=== PATIENT | male | born 1950 | race Caucasian/White ===

== ENCOUNTER → 2021-06-18 11:07 | Outpatient (BNVA) | payer MEDICARE, OTHER, SELFPAY | PROVIDERS: Family Provider Family Medicine; PCP Family Medicine; Visit Provider Specialist | DX: G30.9 Alzheimer's disease, unspecified (principal); F02.80 Dementia in other diseases classified elsewhere, unspecified severity, without behavioral disturbance, psychotic disturbance, mood disturbance, and anxiety | CPT/HCPCS: 96116; 99204 ==

== ENCOUNTER → 2022-01-14 07:34 | Outpatient (BNVA) | payer MEDICARE, OTHER, SELFPAY | PROVIDERS: Family Provider Family Medicine; PCP Family Medicine; Visit Provider Specialist | DX: G30.9 Alzheimer's disease, unspecified (principal); F02.80 Dementia in other diseases classified elsewhere, unspecified severity, without behavioral disturbance, psychotic disturbance, mood disturbance, and anxiety | CPT/HCPCS: 99213 ==

== ENCOUNTER → 2022-04-15 08:05 | Outpatient (BNVA) | payer MEDICARE, OTHER, SELFPAY | PROVIDERS: Family Provider Family Medicine; PCP Family Medicine; Visit Provider Specialist | DX: G30.9 Alzheimer's disease, unspecified (principal); F02.80 Dementia in other diseases classified elsewhere, unspecified severity, without behavioral disturbance, psychotic disturbance, mood disturbance, and anxiety | CPT/HCPCS: 96116; 99213 ==

== ENCOUNTER 2022-09-13 07:00 | Outpatient (CLI) | payer MEDICARE, OTHER, SELFPAY ==
--- NOTE | 2022-09-13 | MR_ITS ---
WS: [id number] MRI HEAD WITH CONTRAST TECHNIQUE: Sagittal T1, T2 axial, T2 axial FLAIR, axial susceptibility weighted imaging, axial diffus ion weighted images, and coronal T2 images were obtained. Pre and post-T1 axial and post T1 coronal i mages. ADC and FSPGR images. CLINICAL INFORMATION: PROGRESSIVE DEMENTIA COMPARISON: CT head 2017 FINDINGS: No evidence of restricted diffusion to suggest acute ischemia. Ventricular system and basal cisterns are patent. Moderate small vessel changes. Moderate parenchymal volume loss. This is progressed since 2017. Normal posterior fossa. Normal vascular flow voids at the skull base. No extra-axial fluid col lections. No evidence of mass or mass effect. Mild mucosal thickening in the ethmoid air cells. Masto id air cells are well aerated. No hemosiderin on susceptibly weighted images. Anterior dominant circulation with tiny basilar flow void. This can be followed up with MRA. Normal o ptic chiasm and pituitary infundibulum. Moderate atrophy temporal lobes and hippocampal formations pr ogressed compared to 2017. Normal dural venous sinuses. No abnormal gadolinium enhancement. Normal cavernous sinuses and Meckel' s cave. MR/MR head wo/w con [id number] IMPRESSION: 1. No evidence of restricted diffusion to suggest acute ischemia. 2. Moderate small vessel changes with moderate parenchymal volume loss progres sed compared to 2017. 3. Moderate parenchymal volume loss involving the anterior temporal lobes and hippocampal formations progressed compared to 2017. Symmetric frontal and parie jose elias moderate parenchymal volume loss. 4. Anterior dominant circulation with small basilar flow void. This can be bet ter further evaluated with MRI for better anatomic detail. 5. No abnormal gadolinium enhancement. 6. No hemosiderin.
[2022-09-13] MEDS: gadobenate dimeglumine 20 mL vial IV (07:46)
== END 2022-09-13 07:01 | disposition home or self-care (01) ==
PROVIDERS: PCP Family Medicine; Visit Provider Specialist
DX: F03.90 Unspecified dementia, unspecified severity, without behavioral disturbance, psychotic disturbance, mood disturbance, and anxiety (principal)
CPT/HCPCS: 70553; A9577

== ENCOUNTER → 2022-09-24 11:43 | Outpatient (BNVA) | payer MEDICARE, OTHER, SELFPAY | PROVIDERS: PCP Family Medicine; Visit Provider Specialist | DX: G30.9 Alzheimer's disease, unspecified; F02.C0 Dementia in other diseases classified elsewhere, severe, without behavioral disturbance, psychotic disturbance, mood disturbance, and anxiety | CPT/HCPCS: 99214 ==

== ENCOUNTER → 2023-09-24 12:27 | Outpatient (BNVA) | payer MEDICARE, OTHER, SELFPAY | PROVIDERS: PCP Family Medicine; Visit Provider Specialist | DX: R41.3 Other amnesia (principal); G30.9 Alzheimer's disease, unspecified; F02.80 Dementia in other diseases classified elsewhere, unspecified severity, without behavioral disturbance, psychotic disturbance, mood disturbance, and anxiety | CPT/HCPCS: 99213 ==

== ENCOUNTER → 2023-12-17 15:11 | Outpatient (BNVA) | payer MEDICARE, OTHER, SELFPAY | PROVIDERS: PCP Family Medicine; Visit Provider Specialist | DX: G30.9 Alzheimer's disease, unspecified; F02.80 Dementia in other diseases classified elsewhere, unspecified severity, without behavioral disturbance, psychotic disturbance, mood disturbance, and anxiety | CPT/HCPCS: 99214; 99215 ==

== ENCOUNTER 2024-01-06 02:01 | Emergency (ER) | payer MEDICARE, OTHER, SELFPAY ==
[2024-01-06 02:02] VITALS: BP 136/90; PULSE 58; RESP 18; TEMP 36.4; O2SAT 97; BMI 23.6
[2024-01-06 02:08] VITALS: BP 136/90; PULSE 66; O2SAT 99
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
[2024-01-06 02:30] LABS: Basophils % 0.3 %; Eosinophils # 0.1 10^3/uL (0.0-0.8); Eosinophils % 0.5 %; Hematocrit 45.9 % (37-53); Lymphocytes # 1.3 10^3/uL (0.8-4.8); Lymphocytes % 12.1 %; Mean Corpuscular HGB Conc 33.1 g/dL (30-55); Mean Corpuscular Hemoglobin 28.7 pg (27-33); Mean Corpuscular Volume 86.6 fl (82-101); Mean Platelet Volume 9.8 fL (7.4-10.4); Monocytes % 9.2 %; Neutrophils # 8.55 10^3/uL (1.8-7.7); Neutrophils % 77.4 %; Nucleated Red Blood Cells % 0 %; Platelet Count 305 10^3/cmm (157-399); Red Cell Distribution Width 13.3 % (12.1-15.1); White Blood Count 11.03 10^3/uL (3.29-11.43)
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
[2024-01-06 02:38] VITALS: BP 125/63; PULSE 52; RESP 17; O2SAT 95
[2024-01-06 02:45] LABS: Alanine Aminotransferase 11 U/L (0-41); Albumin Level 4.3 g/dL (3.5-5.2); Alkaline Phosphatase 69 U/L (40-130); Anion Gap 15.6 (5-19); Aspartate Amino Transferase 19 U/L (0-40); Blood Urea Nitrogen 15 mg/dL (8-23); Calcium 9.4 mg/dL (8.5-10.5); Carbon Dioxide 24 mmol/L (22-29); Chloride 104 mmol/L (98-107); Creatinine Clr Calc Pharmacy 76.2406; Globulin 2.6 g/dL (1.3-4.6); Glucose 111 mg/dL (65-115); Osmolality Calculated 292 mOsm/kg (285-295); Potassium 3.6 mmol/L (3.5-5.1); Sodium 140 mmol/L (136-145); Total Bilirubin 0.8 mg/dL (0.15-1.2); Total Protein 6.9 g/dL (6.6-8.7)
[2024-01-06 02:49] LABS: Alcohol Level < 10 mg/dL (0-10)
[2024-01-06 03:08] VITALS: BP 125/63; PULSE 56; RESP 15; O2SAT 97
[2024-01-06 03:44] VITALS: BP 131/72; PULSE 58; O2SAT 97
== END 2024-01-06 03:45 | disposition home or self-care (01) ==
PROVIDERS: Emergency Provider Emergency Medicine; PCP Family Medicine
DX: S00.81XA Abrasion of other part of head, initial encounter (principal); V03.10XA Pedestrian on foot injured in collision with car, pick-up truck or van in traffic accident, initial encounter
CPT/HCPCS: 36415; 70450; 70486; 72192; 80053; 80307; 85025; 99284